=== PATIENT | male | born 1980 | race Caucasian/White ===

== ENCOUNTER 2016-12-06 07:01 | Emergency (ER) | payer BC ==
[2016-12-06] MEDS ORDERED: NS 0.9% 1000 ML* 1,000 ML IV ONE (07:38)
[2016-12-06] MEDS ORDERED: Ondansetron INJ* 2 MG/ML VIAL IV ONE (07:39)
[2016-12-06] MEDS ORDERED: Lidocaine 2% EPI 1:200000 MPF* 10 ML VIAL INJ ONE (09:15)
[2016-12-06 10:04] VITALS: BP 127/75
--- NOTE | 2016-12-19 13:19 | UC ---
radha Diaz Timothy, scribed for Brooke Ferreira MD on 12/06/16 at 0724 . Abdominal Pain Male HPI - HPI Summary HPI Summary: Silvestre Donovan is a 36 yo male presenting to [facility] with vomiting 9x, fatigue, nausea, and 6/10 cramping abd pain since last night. He notes a cycle of pain and dizziness with relief of pain with vomiting. He states his abd is "puffy", and he has a mild DAMON currently. He denies any change in diet, as well as loose stools, fever, blood in his stool, hematemesis, dysuria, cough, CP, SOB, rhinorrhea. He had a Cdiff infection in February 2016 following his appendectomy and has not really felt well since. He states he was taking a probiotic, but is not at this point. He has an 8 month baby at home and notes that the baby is not in daycare. His MHx includes appendectomy 03/16/16, and Cdiff. - History of Current Complaint Stated Complaint: VOMITING Time Seen by Provider: 12/06/16 07:27 Hx Obtained From: Patient Onset/Duration: Gradual Onset, Lasting Hours, Still Present Timing: Constant Severity Initially: Moderate Severity Currently: Moderate Pain Intensity: 6 Pain Scale Used: 0-10 Numeric Location: Diffuse Radiates: No Character: Cramping, Sharp Associated Signs And Symptoms: Positive: Nausea, Vomiting. Negative: Blood in Stool, Urinary Symptoms, Diarrhea - Allergies/Home Medications Allergies/Adverse Reactions: Allergies Allergy/AdvReac Type Severity Reaction Status Date / Time No Known Allergies Allergy Verified 12/06/16 07:15 PMH/Surg Hx/FS Hx/Imm Hx Previously Healthy: No - C.diff GI/ History: Other - appendectomy and C. diff infection Other GI/ History: appendectomy and C.diff infection - Surgical History Surgical History: Yes Surgery Procedure, Year, and Place: Appendectomy 03/10 - Family History Known Family History: Positive: Hypertension Negative: Cardiac Disease, Diabetes Family History: NON CONTRIBUTORY - Social History Alcohol Use: Occasionally Substance Use Type: None Smoking Status (MU): Never Smoked Tobacco Review of Systems Constitutional: Fatigue Skin: Negative Eyes: Negative ENT: Negative Respiratory: Negative Cardiovascular: Negative Gastrointestinal: Abdominal Pain, Vomiting, Other - nausea Genitourinary: Negative Motor: Negative Neurovascular: Negative Musculoskeletal: Negative Neurological: Headache, Other - dizziness Psychological: Negative All Other Systems Reviewed And Are Negative: Yes Physical Exam Triage Information Reviewed: Yes Appearance: Ill-Appearing - nauseated, mild distress Vital Signs: Initial Vital Signs Temp 98.1 F 12/06/16 07:06 Pulse 86 12/06/16 07:06 Resp 18 12/06/16 07:06 BP 123/71 12/06/16 07:06 Pulse Ox 99 12/06/16 07:06 Vital Signs Reviewed: Yes Eye Exam: Normal Eyes: Positive: Other: - no icterus ENT: Positive: Normal ENT inspection Dental Exam: Normal Neck exam: Normal Respiratory Exam: Normal Cardiovascular Exam: Normal Cardiovascular: Positive: RRR, No Murmur Abdominal Exam: Normal Bowel Sounds: Positive: Present Musculoskeletal Exam: Normal Neurological Exam: Normal Skin Exam: Normal - Additional Comments Constitutional: Pt is awake, A&Ox3, in no acute distress,and cooperative. HENT: atraumatic, CHRISTI, normal TMs and canals bilaterally with no discharge. The nose shows no discharge or lesions. Throat: pink, no purulence, oral mucosa is moist, teeth in good repair. Neck: supple, no masses or adenopathy, no JVD, no thyromegaly. Respiratory: Lungs CTA bilaterally Cardiovascular: RRR, no murmur. Abd: soft, nontender, no masses, no organomegaly, no CVA tenderness Bowel Sounds: present and normal Musculoskeletal: Full ROM, good color to extremities, good tone, power 5/5 in all extremities. Good peripheral pulses with no edema. Neuro: AOx3, cooperative, coherent Skin: clear, good turgor Abd Pain Male Course/Dx - Course Course Of Treatment: Silvestre Donovan is a 36 yo male presenting to [facility] with vomiting, fatigue, nausea and 6/10 abd pain since last night, claiming that he has not felt well since a Cdiff infection S/P appendectomy 03/16/16. In the urgent care course he received zofran for nausea control and IV fluids. His UA results suggest 1+ ketones and 3+ protein and are otherwise WNL. After clinical examination and review of his lab studies he will be discharged home with nausea , vomiting, and viral gastritis. - Differential Dx/Clinical Impression Differential Diagnosis/HQI/PQRI: Other - viral syndrome Provider Diagnoses: nausea, vomiting, viral gastritis Discharge - Discharge Plan Condition: Stable Disposition: HOME Prescriptions: Ondansetron [Zofran 4 MG Odt] 4 mg PO Q4HR PRN #10 tab.odt PRN Reason: Nausea Patient Education Materials: Gastritis (ED), Acute Nausea and Vomiting (ED) Referrals: Joe Cervantes MD [Medical Doctor] - 2 Days Additional Instructions: Please follow up with your primary care physician regarding your visit to urgent care today. Return to urgent care with any new or recurring symptoms. The documentation as recorded by the radha mayen Timothy accurately reflects the service I personally performed and the decisions made by me, Brooke Ferreira MD.
== END 2016-12-06 09:17 | disposition home or self-care (01) ==
LOC: UCEAST 07:01
DX: A08.4 Viral intestinal infection, unspecified (principal); R11.2 Nausea with vomiting, unspecified
CPT/HCPCS: 81003; 96361; 96376; 99212; G0463; J2405